=== PATIENT | male | born 1955 | race Caucasian/White ===

== ENCOUNTER 2018-12-09 10:46 | Inpatient (IN) ==
[2018-12-09 11:57] LABS: BASOPHILS # (AUTO) 0.2 X10^3/uL (0.0-0.1); BASOPHILS % (AUTO) 1.2 % (0.2-1.0); EOSINOPHILS # (AUTO) 0.1 x10^3/uL (0.0-0.2); HEMATOCRIT 44.8 % (42.0-54.0); HEMOGLOBIN 15.6 g/dL (13.5-18.0); LYMPHOCYTES # (AUTO) 1.9 X10^3/uL (1.3-2.9); LYMPHOCYTES % (AUTO) 13.9 % (21.0-51.0); MEAN CORPUSCULAR HEMOGLOBIN 30.4 pg (27.0-34.0); MEAN CORPUSCULAR HGB CONC 34.8 g/dL (33.0-35.0); MEAN CORPUSCULAR VOLUME 87.5 fL (80.0-100.0); MEAN PLATELET VOLUME 7.7 fL (7.4-11.0); MONOCYTES # (AUTO) 0.8 x10^3/uL (0.3-0.8); MONOCYTES % (AUTO) 5.8 % (0.0-13.0); NEUTROPHILS # (AUTO) 10.9 x10^3/uL (2.2-4.8); NEUTROPHILS % (AUTO) 78.1 % (42.0-75.0); PLATELET COUNT 288 X10^3/uL (150.0-450.0); RED BLOOD COUNT 5.11 X10^6/uL (4.7-6.0); RED CELL DISTRIBUTION WIDTH 14.5 % (11.6-16.5); WHITE BLOOD COUNT 13.9 X10^3/uL (3.6-10.0)
[2018-12-09 12:04] LABS: BILIRUBIN,URINE NEGATIVE (NEGATIVE); BLOOD/HEMOGLOBIN,URINE 1+ (NEGATIVE); GLUCOSE, URINE NEGATIVE (NEGATIVE); KETONES,URINE NEGATIVE (NEGATIVE); LEUKOCYTE ESTERASE ,URINE NEGATIVE (NEGATIVE); NITRITES,URINE NEGATIVE (NEGATIVE); PH,URINE 6.5 (5.0 - 8.0); PROTEIN,URINE 2+ (NEGATIVE); UROBILINOGEN,URINE 1+ (NORMAL)
[2018-12-09 12:11] LABS: APPEARANCE,URINE HAZY (CLEAR); COLOR,URINE YELLOW (YELLOW)
[2018-12-09 12:13] VITALS: BMI 37.5
[2018-12-09 12:17] LABS: BACTERIA,URINE NEGATIVE /HPF (NEGATIVE); MUCUS,URINE FEW /HPF (NEGATIVE); RBC,URINE 0-2 /HPF (0-3); SQUAMOUS EPITHELIAL CELL,UR NEGATIVE /HPF (NEGATIVE)
[2018-12-09 12:19] LABS: ALANINE AMINOTRANSFERASE 30 Units/L (12-78); ALBUMIN 3.5 g/dL (3.4-5.0); ALKALINE PHOSPHATASE 51 Units/L (46-116); ASPARTATE AMINO TRANSFERASE 19 Units/L (15-37); BLOOD UREA NITROGEN 14 mg/dL (7-18); CALCIUM 8.9 mg/dL (8.5-10.1); CARBON DIOXIDE 31.1 mmol/L (21-32); CHLORIDE 100 mmol/L (98-107); COR NA(FOR HYPERGLY) 137 mmol/L (136-145); CREATININE 1.33 mg/dL (0.70-1.30); SODIUM 136 mmol/L (136-145); TOTAL PROTEIN 7.5 g/dL (6.4-8.2); eGFR NON BLACK RACES 57 (>60)
[2018-12-09] MEDS: PROTONIX INJ 40 MG VIAL IVP SCH (14:00)
[2018-12-09] MEDS: NS 1000 ML 1,000 ML IV SCH (14:00)
--- NOTE | 2018-12-09 17:46 | DR.H&P ---
H&P - History & Physical for Day of: H&P Date: 12/09/18 - Chief Complaint Chief Complaint: LEFT LOWER ABDOMINAL PAIN, FEVER, CONSTIPATION AND URINARY RETENTION - History of Present Illness History of Present Illness: PT 63WM DIRECT ADMIT FROM DR OSPINA OFFICE WITH LLQ PAIN AND TENDERNESS WITH FEVER FOR 2-3 DAYS. PT STATES HE WAS CONSTIPATED AND HAS TAKEN MILK OF MAGNESIA WITHOUT IMPROVEMENT IN LLQ PAIN. PT STATES PAIN EXTENDS TO LEFT LOWER PELVIC AREA. PT HAS PMH HTN AND OA. PT ADMITTED FOR TREATMENT OF ACUTE ABDOMINAL PAIN R/O DIVERTICULITIS - Past Medical History Past Medical History: Dyslipidemia, Hypertension - Past Surgical History Surgical History: Tonsillectomy - Family History Family Medical History: Diabetes Mellitus, Coronary Artery Disease, Hypertension - Social History Does patient currently use any type of tobacco product: No Have you used tobacco products in the last 12 months: No Type of Tobacco Use: None Does any household member use tobacco: No Alcohol Use: None Drug Use: None - Medications Home Medications: No Known Allergies [NKA] Allergy (Verified 12/09/18 14:20) CONTINUE taking the following medications aspirin [Aspir-81] 81 mg PO DAILY 12/09/18 [History] - Review of Systems Constitutional: Fever Eyes: No Symptoms Reported ENT: No Symptoms Reported Respiratory: No Symptoms Reported Cardiovascular: No Symptoms Reported Gastrointestinal: Nausea, Abdominal Pain, Constipation Genitourinary: Retention Musculoskeletal: No Symptoms Reported Skin: No Symptoms Reported Neurological: No Symptoms Reported - Physical Exam Vital Signs: Temperature 97.8 F Pulse Rate [Right Radial] 82 Respiratory Rate 18 Blood Pressure [Right Arm] 143/80 Blood Pressure 154/88 O2 Sat by Pulse Oximetry 96 Oriented: Normal Eyes: Normal Ear: Normal Nose: Normal Throat: Normal Respiratory: RLL Diminished, LLL Diminished Cardiovascular: Normal : Normal Auscultation: Bowel Sounds: Normal Tenderness: LUQ, LLQ, Suprapubic, Moderate Skin: Decreased Turgur Musculoskeletal: Normal Psychiatric: Anxiety Affect: Anxious Speech Pattern: Clear, Appropriate - Assessment/Plan (1) Abdominal pain, acute, left lower quadrant Status: Acute Plan: ADMIT, NPO. CT ABD/PELVIS WITH CONTRAST, R/O DIVERTICULITIS. IV HYDRATION, PAIN AND NAUSEA CONTROL. PPI, BP CONTROL. AM CXR, UA AND PSA, FLOMAX O.4 Q HS (2) Fever Status: Acute (3) Hypertension Status: Acute (4) Urinary retention Status: Acute - Allergies Allergies/Adverse Reactions: Allergies Allergy/AdvReac Type Severity Reaction Status Date / Time No Known Allergies [NKA] Allergy Verified 12/09/18 14:20
[2018-12-09] MEDS: FLAGYL IV PREMIX 500 MG BAG 500 MG/100 ML BAG IV SCH ×2 (18:26→20:51)
--- NOTE | 2018-12-09 18:57 | CT ---
CT OF THE ABDOMEN AND PELVIS WITH CONTRAST HISTORY: Left-sided abdominal pain and tenderness for 3 days Comparison: None Technique: Multiple axial images of the abdomen and pelvis were obtained from the lung bases to the pubic symphysis follow the administration of IV contrast as well as oral contrast. Dose reduction techniques including Automated Exposure Control (AEC) and adjustment of mA and kV were utlized. Findings: The heart is normal in size. There is no pericardial effusion. Mild emphysema of the lung bases with right basilar bulla. Splenomegaly with the spleen measuring 17 cm in craniocaudal dimension. The liver measures 24 cm in craniocaudal dimension. No focal lesions. The portal vein is patent. No ductal dilitation. Gallbladder is present. No calcified gallstones or gallbladder wall thickening. The pancreas is unremarkable. Adrenal glands are normal. Kidneys enhance symmetrically without hydronephrosis or nephrolithiasis. Severe focal inflammation of the sigmoid colon in the region of multiple diverticula. There is clustered free air within the sigmoid mesentery without definable, loculated fluid collection. No abnormal appearing mesenteric or retroperitoneal lymph nodes. The bladder is normal in appearance. Prostate not enlarged. No free fluid or abnormal pelvic lymph nodes. No aggressive osseous lesions. IMPRESSION: 1. Acute diverticulitis of the sigmoid colon with a local perforation. No abscess visualized. 2. Reported By:
[2018-12-09] MEDS ORDERED: ZOFRAN INJ 4 MG VIAL IVP PRN (19:59)
[2018-12-09] MEDS ORDERED: AMBIEN PO PRN (19:59)
[2018-12-09] MEDS: MORPHINE SULFATE INJ 2 MG INJ IVP PRN (20:50)
[2018-12-09] MEDS: FLOMAX PO SCH (20:50)
[2018-12-09] MEDS: CIPRO IV 400 MG PREMIX* 400 MG/200 ML IV.SOLN. IV SCH (21:00)
[2018-12-10] MEDS: FLAGYL IV PREMIX 500 MG BAG 500 MG/100 ML BAG IV SCH ×4 (03:29→20:52)
[2018-12-10] MEDS: MORPHINE SULFATE INJ 2 MG INJ IVP PRN (03:29)
[2018-12-10] MEDS: NS 1000 ML 1,000 ML IV SCH ×3 (03:30→22:21)
[2018-12-10 06:22] LABS: BASOPHILS # (AUTO) 0.1 X10^3/uL (0.0-0.1); BASOPHILS % (AUTO) 0.9 % (0.2-1.0); EOSINOPHILS # (AUTO) 0.2 x10^3/uL (0.0-0.2); HEMATOCRIT 39.7 % (42.0-54.0); HEMOGLOBIN 13.8 g/dL (13.5-18.0); LYMPHOCYTES % (AUTO) 19.6 % (21.0-51.0); MEAN CORPUSCULAR HEMOGLOBIN 30.6 pg (27.0-34.0); MEAN CORPUSCULAR HGB CONC 34.7 g/dL (33.0-35.0); MEAN CORPUSCULAR VOLUME 88.1 fL (80.0-100.0); MEAN PLATELET VOLUME 7.6 fL (7.4-11.0); MONOCYTES # (AUTO) 0.6 x10^3/uL (0.3-0.8); MONOCYTES % (AUTO) 5.4 % (0.0-13.0); NEUTROPHILS # (AUTO) 7.4 x10^3/uL (2.2-4.8); NEUTROPHILS % (AUTO) 72.1 % (42.0-75.0); PLATELET COUNT 244 X10^3/uL (150.0-450.0); RED BLOOD COUNT 4.51 X10^6/uL (4.7-6.0); RED CELL DISTRIBUTION WIDTH 14.3 % (11.6-16.5); WHITE BLOOD COUNT 10.2 X10^3/uL (3.6-10.0)
--- NOTE | 2018-12-10 06:24 | RAD ---
HISTORY: Decreased lung sounds Study: Chest AP portable Comparison: [id number] Findings: Heart is within normal limits in size. The natasha are normal. The lungs are minimally hyperinflated but free of acute infiltrates. No pleural effusions are identified. The bony thorax is unremarkable. IMPRESSION: Lungs minimally hyperinflated but clear Reported By:
[2018-12-10 06:39] LABS: ALANINE AMINOTRANSFERASE 27 Units/L (12-78); ALBUMIN 2.8 g/dL (3.4-5.0); ALKALINE PHOSPHATASE 42 Units/L (46-116); ASPARTATE AMINO TRANSFERASE 20 Units/L (15-37); BLOOD UREA NITROGEN 15 mg/dL (7-18); CALCIUM 8.5 mg/dL (8.5-10.1); CARBON DIOXIDE 26.2 mmol/L (21-32); CHLORIDE 102 mmol/L (98-107); COR CA(FOR HYPOALB) 9.5 mg/dL (8.5-10.1); COR NA(FOR HYPERGLY) 138 mmol/L (136-145); CREATININE 1.21 mg/dL (0.70-1.30); SODIUM 137 mmol/L (136-145); TOTAL PROTEIN 6.3 g/dL (6.4-8.2); eGFR NON BLACK RACES > 60 (>60)
[2018-12-10] MEDS ORDERED: K-DUR TAB 20 MEQ PO PRN (07:24)
[2018-12-10] MEDS ORDERED: MICRO K EXTEN CAP 10 MEQ PO PRN (07:24)
[2018-12-10] MEDS ORDERED: POTASSIUM CHLORIDE LIQ 20 MEQ UDC PO PRN (07:24)
[2018-12-10] MEDS ORDERED: K-RIDER 10 MEQ/NS 100 ML 10 MEQ/100 ML BAG IV PRN (07:24)
[2018-12-10] MEDS ORDERED: POTASSIUM CHL 40 MEQ/NS 0.45% 500 ML IV PRN (07:24)
[2018-12-10] MEDS ORDERED: KLOR-CON PO PRN (07:24)
[2018-12-10] MEDS ORDERED: POTASSIUM CHL 60 MEQ/NS 0.45% 500 ML IV PRN (07:24)
[2018-12-10] MEDS: PROTONIX INJ 40 MG VIAL IVP SCH (08:24)
[2018-12-10] MEDS: CIPRO IV 400 MG PREMIX* 400 MG/200 ML IV.SOLN. IV SCH ×2 (08:24→20:52)
[2018-12-10] MEDS: HYDROCHLOROTHIAZIDE 12.5 MG CAP PO SCH ×2 (09:36→09:39)
[2018-12-10] MEDS: COZAAR PO SCH ×2 (09:36→09:39)
[2018-12-10] MEDS: CRESTOR TAB 10 MG PO SCH (09:37)
[2018-12-10] MEDS: XANAX PO PRN ×2 (10:34→17:56)
--- NOTE | 2018-12-10 10:45 | DR.PROGNOT ---
Hospital Progress Notes - Progress Note for Day of: Progress Note Date: 12/10/18 - Chief Complaint Chief Complaint: Lt side abdominal pain is less this am . no nausea or vomiting. having low grade fever this am . WBC 10.2 - Past Medical Family Social History Past Med/Fam/Surg Hx: No changes since H&P Allergies: Allergies No Known Allergies [NKA] Allergy (Verified 12/09/18 14:20) - Review Of Systems ROS: No change since H&P - Vital Signs Vital Signs: Temperature 99 F Pulse Rate [Right Radial] 75 Respiratory Rate 20 Blood Pressure [Right Arm] 118/59 Blood Pressure 154/88 O2 Sat by Pulse Oximetry 94 - Physical Exam Oriented: Normal Eyes: Normal Ear: Normal Nose: Normal Throat: Normal Cardiovascular: Normal : Normal GI:Auscultation: Decreased GI:Palpation: Normal GI: Tenderness: LLQ (obese , soft abdomen with LLQ tenderness with only mild rebound . BS+ but hypoactive ), Suprapubic, Moderate Skin: Decreased Turgur Musculoskeletal: Normal Psychiatric: Anxiety Affect: Anxious Speech Pattern: Clear, Appropriate - Laboratory and Diagnostics Result Diagrams: 12/10/18 05:55 12/10/18 05:55 Labs: Laboratory WBC 10.2 X10^3/uL (3.6-10.0) H 12/10/18 05:55 RBC 4.51 X10^6/uL (4.7-6.0) L 12/10/18 05:55 Hgb 13.8 g/dL (13.5-18.0) 12/10/18 05:55 Hct 39.7 % (42.0-54.0) L 12/10/18 05:55 MCV 88.1 fL (80.0-100.0) 12/10/18 05:55 MCH 30.6 pg (27.0-34.0) 12/10/18 05:55 MCHC 34.7 g/dL (33.0-35.0) 12/10/18 05:55 RDW 14.3 % (11.6-16.5) 12/10/18 05:55 Plt Count 244 X10^3/uL (150.0-450.0) 12/10/18 05:55 MPV 7.6 fL (7.4-11.0) 12/10/18 05:55 Neut % (Auto) 72.1 % (42.0-75.0) 12/10/18 05:55 Lymph % (Auto) 19.6 % (21.0-51.0) L 12/10/18 05:55 [place] % (Auto) 5.4 % (0.0-13.0) 12/10/18 05:55 Eos % (Auto) 2.0 % (0.9-2.9) 12/10/18 05:55 Baso % (Auto) 0.9 % (0.2-1.0) 12/10/18 05:55 Neut # (Auto) 7.4 x10^3/uL (2.2-4.8) H 12/10/18 05:55 Lymph # (Auto) 2.0 X10^3/uL (1.3-2.9) 12/10/18 05:55 [place] # (Auto) 0.6 x10^3/uL (0.3-0.8) 12/10/18 05:55 Eos # (Auto) 0.2 x10^3/uL (0.0-0.2) 12/10/18 05:55 Baso # (Auto) 0.1 X10^3/uL (0.0-0.1) 12/10/18 05:55 Absolute Nucleated RBC 0.0 /100WBC 12/10/18 05:55 Sodium 137 mmol/L (136-145) 12/10/18 05:55 Corrected Sodium 138 mmol/L (136-145) 12/10/18 05:55 Potassium 3.4 mmol/L (3.5-5.1) L 12/10/18 05:55 Chloride 102 mmol/L (98-107) 12/10/18 05:55 Carbon Dioxide 26.2 mmol/L (21-32) 12/10/18 05:55 BUN 15 mg/dL (7-18) 12/10/18 05:55 Creatinine 1.21 mg/dL (0.70-1.30) 12/10/18 05:55 Est GFR (MDRD) Af Amer > 60 (>60) 12/10/18 05:55 Est GFR (MDRD) Non-Af > 60 (>60) 12/10/18 05:55 Glucose 130 mg/dL (65-99) H 12/10/18 05:55 Calcium 8.5 mg/dL (8.5-10.1) 12/10/18 05:55 Corrected Calcium 9.5 mg/dL (8.5-10.1) 12/10/18 05:55 Magnesium 2.1 mg/dL (1.7-2.9) 12/10/18 05:55 Total Bilirubin 0.40 mg/dL (0.2-1.0) 12/10/18 05:55 AST 20 Units/L (15-37) 12/10/18 05:55 ALT 27 Units/L (12-78) 12/10/18 05:55 Alkaline Phosphatase 42 Units/L (46-116) L 12/10/18 05:55 Total Protein 6.3 g/dL (6.4-8.2) L 12/10/18 05:55 Albumin 2.8 g/dL (3.4-5.0) L 12/10/18 05:55 Globulin 3.5 g/dL (2.5-4.5) 12/10/18 05:55 Albumin/Globulin Ratio 0.8 Ratio (1.1-2.1) L 12/10/18 05:55 Total PSA 0.47 ng/mL (0.13-4.0) 12/09/18 11:44 Specimen Type Clean catch urine 12/09/18 11:44 Urine Color Yellow (YELLOW) 12/09/18 11:44 Urine Appearance Hazy (CLEAR) 12/09/18 11:44 Urine pH 6.5 (5.0 - 8.0) 12/09/18 11:44 Ur Specific [place] 1.010 (1.000-1.030) 12/09/18 11:44 Urine Protein 2+ (NEGATIVE) 12/09/18 11:44 Urine Glucose (UA) Negative (NEGATIVE) 12/09/18 11:44 Urine Ketones Negative (NEGATIVE) 12/09/18 11:44 Urine Occult Blood 1+ (NEGATIVE) 12/09/18 11:44 Urine Nitrite Negative (NEGATIVE) 12/09/18 11:44 Urine Bilirubin Negative (NEGATIVE) 12/09/18 11:44 Urine Urobilinogen 1+ (NORMAL) 12/09/18 11:44 Ur Leukocyte Esterase Negative (NEGATIVE) 12/09/18 11:44 Urine RBC 0-2 /HPF (0-3) 12/09/18 11:44 Urine WBC None seen /HPF (0-5) 12/09/18 11:44 Ur Squamous Epith Cells Negative /HPF (NEGATIVE) 12/09/18 11:44 Urine Bacteria Negative /HPF (NEGATIVE) 12/09/18 11:44 Urine Mucus Few /HPF (NEGATIVE) 12/09/18 11:44 Ur Culture Indicated? No/not indicated 12/09/18 11:44 - Assessment and Plan 1: acute sigmoid diverticulitis with sealed perforation . no peritonitis now . to keep NPO , IVF , IV ATB ( Cipro and Flagyl ). DVT prophylaxis and IV Protonix . may have oral meds . abdominal xray in am - Problem Patient Problems: Patient Problems Abdominal pain, acute, left lower quadrant (Acute) R10.32 Fever (Acute) R50.9 Hypertension (Acute) I10 Urinary retention (Acute) R33.9
[2018-12-10] MEDS: LOVENOX INJ 40 MG SYR SC SCH (16:45)
[2018-12-10] MEDS: SEROquel TAB 25 mg PO SCH (17:55)
--- NOTE | 2018-12-10 18:16 | PCM.PROG ---
Progress Note - Progress Note for Day of Date of Exam: 12/10/18 - Subjective Subjective: his is a 63-year-old male who is a patient of Dr. Toribio. He was admitted with acute onset of abdominal pain which was localized to the left lower quadrant. His pain started about 5 days ago. It was constant with episodes of increased intensity which was severe at times. He denies any nausea and vomiting this morning. The patient has a long standing history of constipation for which he uses Milk of Magnesium. He denies any rectal bleeding. No previous episodes of similar abdominal pain. No known history of diverticulitis before. No colonoscopy was performed in the past. pt wbc 10.2 this am, Pt co increased anxiety. Pt and spouse informed of CT finding and consultation for Dr. Locke - Past Medical Family Social History Past Med/Fam/Surg Hx: No changes since H&P Allergies: Allergies No Known Allergies [NKA] Allergy (Verified 12/09/18 14:20) - Review of Systems ROS: No change since H&P - Vital Signs and I&O's Vital Signs: Temperature 99.2 F Pulse Rate [Right Radial] 71 Respiratory Rate 18 Blood Pressure [Right Arm] 122/64 Blood Pressure 154/88 O2 Sat by Pulse Oximetry 94 Intake and Output: Intake & Output 12/08/18 12/09/18 12/10/18 12/11/18 11:59 11:59 11:59 11:59 Intake Total 510 / 510 1000 / 1000 Balance 510 / 510 1000 / 1000 - Physical Exam Oriented: Normal Eyes: Normal Ear: Normal Nose: Normal Throat: Normal Respiratory: Diminished Cardiovascular: Normal : Normal Auscultation: Bowel Sounds: Decreased Tenderness: LLQ (obese , soft abdomen with LLQ tenderness with only mild rebound . BS+ but hypoactive ), Suprapubic, Moderate Skin: Decreased Turgur Musculoskeletal: Normal Psychiatric: Anxiety Affect: Anxious Speech Pattern: Clear, Appropriate - Laboratory and Diagnostics Result Diagrams: 12/10/18 05:55 12/10/18 05:55 Labs: Laboratory WBC 10.2 X10^3/uL (3.6-10.0) H 12/10/18 05:55 RBC 4.51 X10^6/uL (4.7-6.0) L 12/10/18 05:55 Hgb 13.8 g/dL (13.5-18.0) 12/10/18 05:55 Hct 39.7 % (42.0-54.0) L 12/10/18 05:55 MCV 88.1 fL (80.0-100.0) 12/10/18 05:55 MCH 30.6 pg (27.0-34.0) 12/10/18 05:55 MCHC 34.7 g/dL (33.0-35.0) 12/10/18 05:55 RDW 14.3 % (11.6-16.5) 12/10/18 05:55 Plt Count 244 X10^3/uL (150.0-450.0) 12/10/18 05:55 MPV 7.6 fL (7.4-11.0) 12/10/18 05:55 Neut % (Auto) 72.1 % (42.0-75.0) 12/10/18 05:55 Lymph % (Auto) 19.6 % (21.0-51.0) L 12/10/18 05:55 [place] % (Auto) 5.4 % (0.0-13.0) 12/10/18 05:55 Eos % (Auto) 2.0 % (0.9-2.9) 12/10/18 05:55 Baso % (Auto) 0.9 % (0.2-1.0) 12/10/18 05:55 Neut # (Auto) 7.4 x10^3/uL (2.2-4.8) H 12/10/18 05:55 Lymph # (Auto) 2.0 X10^3/uL (1.3-2.9) 12/10/18 05:55 [place] # (Auto) 0.6 x10^3/uL (0.3-0.8) 12/10/18 05:55 Eos # (Auto) 0.2 x10^3/uL (0.0-0.2) 12/10/18 05:55 Baso # (Auto) 0.1 X10^3/uL (0.0-0.1) 12/10/18 05:55 Absolute Nucleated RBC 0.0 /100WBC 12/10/18 05:55 Sodium 137 mmol/L (136-145) 12/10/18 05:55 Corrected Sodium 138 mmol/L (136-145) 12/10/18 05:55 Potassium 3.4 mmol/L (3.5-5.1) L 12/10/18 05:55 Chloride 102 mmol/L (98-107) 12/10/18 05:55 Carbon Dioxide 26.2 mmol/L (21-32) 12/10/18 05:55 BUN 15 mg/dL (7-18) 12/10/18 05:55 Creatinine 1.21 mg/dL (0.70-1.30) 12/10/18 05:55 Est GFR (MDRD) Af Amer > 60 (>60) 12/10/18 05:55 Est GFR (MDRD) Non-Af > 60 (>60) 12/10/18 05:55 Glucose 130 mg/dL (65-99) H 12/10/18 05:55 Calcium 8.5 mg/dL (8.5-10.1) 12/10/18 05:55 Corrected Calcium 9.5 mg/dL (8.5-10.1) 12/10/18 05:55 Magnesium 2.1 mg/dL (1.7-2.9) 12/10/18 05:55 Total Bilirubin 0.40 mg/dL (0.2-1.0) 12/10/18 05:55 AST 20 Units/L (15-37) 12/10/18 05:55 ALT 27 Units/L (12-78) 12/10/18 05:55 Alkaline Phosphatase 42 Units/L (46-116) L 12/10/18 05:55 Total Protein 6.3 g/dL (6.4-8.2) L 12/10/18 05:55 Albumin 2.8 g/dL (3.4-5.0) L 12/10/18 05:55 Globulin 3.5 g/dL (2.5-4.5) 12/10/18 05:55 Albumin/Globulin Ratio 0.8 Ratio (1.1-2.1) L 12/10/18 05:55 Total PSA 0.47 ng/mL (0.13-4.0) 12/09/18 11:44 Specimen Type Clean catch urine 12/09/18 11:44 Urine Color Yellow (YELLOW) 12/09/18 11:44 Urine Appearance Hazy (CLEAR) 12/09/18 11:44 Urine pH 6.5 (5.0 - 8.0) 12/09/18 11:44 Ur Specific [place] 1.010 (1.000-1.030) 12/09/18 11:44 Urine Protein 2+ (NEGATIVE) 12/09/18 11:44 Urine Glucose (UA) Negative (NEGATIVE) 12/09/18 11:44 Urine Ketones Negative (NEGATIVE) 12/09/18 11:44 Urine Occult Blood 1+ (NEGATIVE) 12/09/18 11:44 Urine Nitrite Negative (NEGATIVE) 12/09/18 11:44 Urine Bilirubin Negative (NEGATIVE) 12/09/18 11:44 Urine Urobilinogen 1+ (NORMAL) 12/09/18 11:44 Ur Leukocyte Esterase Negative (NEGATIVE) 12/09/18 11:44 Urine RBC 0-2 /HPF (0-3) 12/09/18 11:44 Urine WBC None seen /HPF (0-5) 12/09/18 11:44 Ur Squamous Epith Cells Negative /HPF (NEGATIVE) 12/09/18 11:44 Urine Bacteria Negative /HPF (NEGATIVE) 12/09/18 11:44 Urine Mucus Few /HPF (NEGATIVE) 12/09/18 11:44 Ur Culture Indicated? No/not indicated 12/09/18 11:44 - Plan (1) Acute diverticulitis Status: Acute Plan: NPO, DR LOCKE CONSULTING. CT ABD/PELVIS OBTAINED ON ADMISSION. IV HYDRATION, PAIN AND NAUSEA CONTROL. PPI, BP CONTROL. AM CXR, UA AND PSA, FLOMAX O.4 Q HS (2) Abdominal pain, acute, left lower quadrant Status: Acute (3) Fever Status: Acute (4) Hypertension Status: Acute (5) Urinary retention Status: Acute
[2018-12-10] MEDS: FLOMAX PO SCH (20:50)
[2018-12-11] MEDS: FLAGYL IV PREMIX 500 MG BAG 500 MG/100 ML BAG IV SCH ×4 (03:55→20:27)
[2018-12-11] MEDS: NS 1000 ML 1,000 ML IV SCH ×3 (03:56→21:05)
[2018-12-11 06:17] LABS: ALANINE AMINOTRANSFERASE 26 Units/L (12-78); ALBUMIN 2.9 g/dL (3.4-5.0); ALKALINE PHOSPHATASE 41 Units/L (46-116); ASPARTATE AMINO TRANSFERASE 20 Units/L (15-37); BLOOD UREA NITROGEN 14 mg/dL (7-18); CALCIUM 8.7 mg/dL (8.5-10.1); CARBON DIOXIDE 28.7 mmol/L (21-32); CHLORIDE 102 mmol/L (98-107); COR CA(FOR HYPOALB) 9.6 mg/dL (8.5-10.1); CREATININE 1.24 mg/dL (0.70-1.30); SODIUM 140 mmol/L (136-145); TOTAL PROTEIN 6.5 g/dL (6.4-8.2); eGFR NON BLACK RACES > 60 (>60)
[2018-12-11 06:18] LABS: BASOPHILS % (AUTO) 0.3 % (0.2-1.0); EOSINOPHILS # (AUTO) 0.2 x10^3/uL (0.0-0.2); EOSINOPHILS % (AUTO) 3.1 % (0.9-2.9); HEMATOCRIT 40.5 % (42.0-54.0); HEMOGLOBIN 13.9 g/dL (13.5-18.0); LYMPHOCYTES # (AUTO) 1.7 X10^3/uL (1.3-2.9); LYMPHOCYTES % (AUTO) 24.8 % (21.0-51.0); MEAN CORPUSCULAR HEMOGLOBIN 30.3 pg (27.0-34.0); MEAN CORPUSCULAR HGB CONC 34.4 g/dL (33.0-35.0); MEAN CORPUSCULAR VOLUME 88.1 fL (80.0-100.0); MEAN PLATELET VOLUME 7.5 fL (7.4-11.0); MONOCYTES # (AUTO) 0.4 x10^3/uL (0.3-0.8); MONOCYTES % (AUTO) 5.7 % (0.0-13.0); NEUTROPHILS # (AUTO) 4.6 x10^3/uL (2.2-4.8); NEUTROPHILS % (AUTO) 66.1 % (42.0-75.0); PLATELET COUNT 290 X10^3/uL (150.0-450.0); RED CELL DISTRIBUTION WIDTH 14.5 % (11.6-16.5); WHITE BLOOD COUNT 6.9 X10^3/uL (3.6-10.0)
[2018-12-11] MEDS: SEROquel TAB 25 mg PO SCH ×2 (08:45→18:00)
[2018-12-11] MEDS: PROTONIX INJ 40 MG VIAL IVP SCH (08:47)
[2018-12-11] MEDS: LOVENOX INJ 40 MG SYR SC SCH (08:51)
[2018-12-11] MEDS: COZAAR PO SCH (08:52)
[2018-12-11] MEDS: HYDROCHLOROTHIAZIDE 12.5 MG CAP PO SCH (08:52)
[2018-12-11] MEDS: CRESTOR TAB 10 MG PO SCH (08:52)
[2018-12-11] MEDS: CIPRO IV 400 MG PREMIX* 400 MG/200 ML IV.SOLN. IV SCH ×2 (10:15→20:27)
--- NOTE | 2018-12-11 16:03 | DR.PROGNOT ---
Hospital Progress Notes - Progress Note for Day of: Progress Note Date: 12/11/18 - Chief Complaint Chief Complaint: better today with mild Lt side abdominal pain . no nausea or vomiting . afebrile . - Past Medical Family Social History Past Med/Fam/Surg Hx: No changes since H&P Allergies: Allergies No Known Allergies [NKA] Allergy (Verified 12/09/18 14:20) - Review Of Systems ROS: No change since H&P - Vital Signs Vital Signs: Temperature 98.1 F Pulse Rate [Right Radial] 76 Respiratory Rate 20 Blood Pressure [Right Arm] 103/68 Blood Pressure 154/88 O2 Sat by Pulse Oximetry 94 - Physical Exam Oriented: Normal Eyes: Normal Ear: Normal Nose: Normal Throat: Normal Respiratory: Diminished Cardiovascular: Normal : Normal GI:Auscultation: Decreased GI:Palpation: Normal GI: Tenderness: LLQ (obese , soft abdomen with LLQ tenderness with only mild rebound . BS+ but hypoactive ), Suprapubic, Moderate Skin: Decreased [place]ur Musculoskeletal: Normal Psychiatric: Anxiety Affect: Anxious Speech Pattern: Clear - Laboratory and Diagnostics Result Diagrams: 12/11/18 05:10 12/11/18 05:10 Labs: Laboratory WBC 6.9 X10^3/uL (3.6-10.0) 12/11/18 05:10 RBC 4.60 X10^6/uL (4.7-6.0) L 12/11/18 05:10 Hgb 13.9 g/dL (13.5-18.0) 12/11/18 05:10 Hct 40.5 % (42.0-54.0) L 12/11/18 05:10 MCV 88.1 fL (80.0-100.0) 12/11/18 05:10 MCH 30.3 pg (27.0-34.0) 12/11/18 05:10 MCHC 34.4 g/dL (33.0-35.0) 12/11/18 05:10 RDW 14.5 % (11.6-16.5) 12/11/18 05:10 Plt Count 290 X10^3/uL (150.0-450.0) 12/11/18 05:10 MPV 7.5 fL (7.4-11.0) 12/11/18 05:10 Neut % (Auto) 66.1 % (42.0-75.0) 12/11/18 05:10 Lymph % (Auto) 24.8 % (21.0-51.0) 12/11/18 05:10 [place] % (Auto) 5.7 % (0.0-13.0) 12/11/18 05:10 Eos % (Auto) 3.1 % (0.9-2.9) H 12/11/18 05:10 Baso % (Auto) 0.3 % (0.2-1.0) 12/11/18 05:10 Neut # (Auto) 4.6 x10^3/uL (2.2-4.8) 12/11/18 05:10 Lymph # (Auto) 1.7 X10^3/uL (1.3-2.9) 12/11/18 05:10 [place] # (Auto) 0.4 x10^3/uL (0.3-0.8) 12/11/18 05:10 Eos # (Auto) 0.2 x10^3/uL (0.0-0.2) 12/11/18 05:10 Baso # (Auto) 0.0 X10^3/uL (0.0-0.1) 12/11/18 05:10 Absolute Nucleated RBC 0.1 /100WBC 12/11/18 05:10 Sodium 140 mmol/L (136-145) 12/11/18 05:10 Corrected Sodium TNP 12/11/18 05:10 Potassium 3.7 mmol/L (3.5-5.1) 12/11/18 05:10 Chloride 102 mmol/L (98-107) 12/11/18 05:10 Carbon Dioxide 28.7 mmol/L (21-32) 12/11/18 05:10 BUN 14 mg/dL (7-18) 12/11/18 05:10 Creatinine 1.24 mg/dL (0.70-1.30) 12/11/18 05:10 Est GFR (MDRD) Af Amer > 60 (>60) 12/11/18 05:10 Est GFR (MDRD) Non-Af > 60 (>60) 12/11/18 05:10 Glucose 110 mg/dL (65-99) H 12/11/18 05:10 Calcium 8.7 mg/dL (8.5-10.1) 12/11/18 05:10 Corrected Calcium 9.6 mg/dL (8.5-10.1) 12/11/18 05:10 Magnesium 2.1 mg/dL (1.7-2.9) 12/10/18 05:55 Total Bilirubin 0.40 mg/dL (0.2-1.0) 12/11/18 05:10 AST 20 Units/L (15-37) 12/11/18 05:10 ALT 26 Units/L (12-78) 12/11/18 05:10 Alkaline Phosphatase 41 Units/L (46-116) L 12/11/18 05:10 Total Protein 6.5 g/dL (6.4-8.2) 12/11/18 05:10 Albumin 2.9 g/dL (3.4-5.0) L 12/11/18 05:10 Globulin 3.6 g/dL (2.5-4.5) 12/11/18 05:10 Albumin/Globulin Ratio 0.8 Ratio (1.1-2.1) L 12/11/18 05:10 Total PSA 0.47 ng/mL (0.13-4.0) 12/09/18 11:44 Specimen Type Clean catch urine 12/09/18 11:44 Urine Color Yellow (YELLOW) 12/09/18 11:44 Urine Appearance Hazy (CLEAR) 12/09/18 11:44 Urine pH 6.5 (5.0 - 8.0) 12/09/18 11:44 Ur Specific [place] 1.010 (1.000-1.030) 12/09/18 11:44 Urine Protein 2+ (NEGATIVE) 12/09/18 11:44 Urine Glucose (UA) Negative (NEGATIVE) 12/09/18 11:44 Urine Ketones Negative (NEGATIVE) 12/09/18 11:44 Urine Occult Blood 1+ (NEGATIVE) 12/09/18 11:44 Urine Nitrite Negative (NEGATIVE) 12/09/18 11:44 Urine Bilirubin Negative (NEGATIVE) 12/09/18 11:44 Urine Urobilinogen 1+ (NORMAL) 12/09/18 11:44 Ur Leukocyte Esterase Negative (NEGATIVE) 12/09/18 11:44 Urine RBC 0-2 /HPF (0-3) 12/09/18 11:44 Urine WBC None seen /HPF (0-5) 12/09/18 11:44 Ur Squamous Epith Cells Negative /HPF (NEGATIVE) 12/09/18 11:44 Urine Bacteria Negative /HPF (NEGATIVE) 12/09/18 11:44 Urine Mucus Few /HPF (NEGATIVE) 12/09/18 11:44 Ur Culture Indicated? No/not indicated 12/09/18 11:44 - Assessment and Plan 1: subsiding acute sigmoid divrticulitis with sealed perforation . same IV ATB ( Cipro and Flagyl ). DVT prophylaxis and IV Protonix . on clear liquid . may go home in am on oral ATB and will follow in one week . - Problem Patient Problems: Patient Problems Abdominal pain, acute, left lower quadrant (Acute) R10.32 Fever (Acute) R50.9 Hypertension (Acute) I10 Urinary retention (Acute) R33.9 Acute diverticulitis (Acute) K57.92
[2018-12-11] MEDS: FLOMAX PO SCH (20:27)
[2018-12-12] MEDS: NS 1000 ML 1,000 ML IV SCH ×3 (03:49→11:00)
[2018-12-12] MEDS: FLAGYL IV PREMIX 500 MG BAG 500 MG/100 ML BAG IV SCH ×2 (03:49→17:20)
[2018-12-12 06:24] LABS: BLOOD UREA NITROGEN 15 mg/dL (7-18); CALCIUM 8.9 mg/dL (8.5-10.1); CARBON DIOXIDE 25.8 mmol/L (21-32); CHLORIDE 105 mmol/L (98-107); CREATININE 1.22 mg/dL (0.70-1.30); SODIUM 141 mmol/L (136-145); eGFR NON BLACK RACES > 60 (>60)
--- NOTE | 2018-12-12 09:28 | W.DIS.FURT ---
Summary of Discharge Discharge Summary of Date Date of Exam: 12/12/18 Admission Date Date of Admission: 12/09/18 Admission Diagnosis Patient Problems (Updated 12/10/18 @ 18:16 by JEN SHELL) Abdominal pain, acute, left lower quadrant (Acute) R10.32 Fever (Acute) R50.9 Hypertension (Acute) I10 Urinary retention (Acute) R33.9 Acute diverticulitis (Acute) K57.92 Hospital Course: Pt is a 63-year-old male, pcp Dr. Toribio, admitted after having acute onset of abdominal pain of the left lower quadrant. CTAP showing acute sigmoid diverticulitis w/ localized perforation. Pt was started on IV abx Cipro and Flagyl, placed on NPO diet. Gen Surgery was consulted, continued plan of care, and evaluation including diagnosis of diverticulitis w/ sealed perforation. Pt's diet was gradually advanced. On day of discharge, pt was afebrile, tolerated po intake, had regular bowel movement, and no longer had abdominal pain/discomfort on examination. Prior he had no known history of diverticulitis before. No colonoscopy was performed in the past. Instructed to follow up within 1 week w/ General Surgery and PCP. Discharged with po cipro and flagyl to complete 10day course. Vital Signs: Vital Signs (72 hours) 12/09/18 11:30 12/09/18 16:00 12/09/18 20:00 Temperature 99.4 F 97.8 F 98.4 F Pulse Rate [Right Radial] 110 H 82 81 Respiratory Rate 20 18 20 Blood Pressure [Right Arm] 126/82 143/80 132/58 O2 Sat by Pulse Oximetry 96 95 12/09/18 20:50 12/09/18 21:20 12/10/18 00:00 Temperature 97.8 F Pulse Rate [Right Radial] 78 Respiratory Rate 18 20 20 Blood Pressure [Right Arm] 136/61 O2 Sat by Pulse Oximetry 96 12/10/18 03:29 12/10/18 03:59 12/10/18 04:00 Temperature 99 F Pulse Rate [Right Radial] 75 Respiratory Rate 20 20 20 Blood Pressure [Right Arm] 118/59 O2 Sat by Pulse Oximetry 94 L 12/10/18 08:00 12/10/18 11:40 12/10/18 16:00 Temperature 98.0 F 98.2 F 99.2 F Pulse Rate [Right Radial] 78 67 71 Respiratory Rate 20 20 18 Blood Pressure [Right Arm] 136/77 118/57 122/64 O2 Sat by Pulse Oximetry 98 95 94 L 12/11/18 08:00 12/11/18 20:00 Temperature 98.1 F 98.0 F Pulse Rate [Right Radial] 76 74 Respiratory Rate 20 22 Blood Pressure [Right Arm] 103/68 119/58 O2 Sat by Pulse Oximetry 94 L 98 Labs: Laboratory Last Values WBC 6.9 X10^3/uL (3.6-10.0) 12/11/18 05:10 RBC 4.60 X10^6/uL (4.7-6.0) L 12/11/18 05:10 Hgb 13.9 g/dL (13.5-18.0) 12/11/18 05:10 Hct 40.5 % (42.0-54.0) L 12/11/18 05:10 MCV 88.1 fL (80.0-100.0) 12/11/18 05:10 MCH 30.3 pg (27.0-34.0) 12/11/18 05:10 MCHC 34.4 g/dL (33.0-35.0) 12/11/18 05:10 RDW 14.5 % (11.6-16.5) 12/11/18 05:10 Plt Count 290 X10^3/uL (150.0-450.0) 12/11/18 05:10 MPV 7.5 fL (7.4-11.0) 12/11/18 05:10 Neut % (Auto) 66.1 % (42.0-75.0) 12/11/18 05:10 Lymph % (Auto) 24.8 % (21.0-51.0) 12/11/18 05:10 [place] % (Auto) 5.7 % (0.0-13.0) 12/11/18 05:10 Eos % (Auto) 3.1 % (0.9-2.9) H 12/11/18 05:10 Baso % (Auto) 0.3 % (0.2-1.0) 12/11/18 05:10 Neut # (Auto) 4.6 x10^3/uL (2.2-4.8) 12/11/18 05:10 Lymph # (Auto) 1.7 X10^3/uL (1.3-2.9) 12/11/18 05:10 [place] # (Auto) 0.4 x10^3/uL (0.3-0.8) 12/11/18 05:10 Eos # (Auto) 0.2 x10^3/uL (0.0-0.2) 12/11/18 05:10 Baso # (Auto) 0.0 X10^3/uL (0.0-0.1) 12/11/18 05:10 Absolute Nucleated RBC 0.1 /100WBC 12/11/18 05:10 Sodium 141 mmol/L (136-145) 12/12/18 04:07 Corrected Sodium TNP 12/12/18 04:07 Potassium 3.8 mmol/L (3.5-5.1) 12/12/18 04:07 Chloride 105 mmol/L (98-107) 12/12/18 04:07 Carbon Dioxide 25.8 mmol/L (21-32) 12/12/18 04:07 BUN 15 mg/dL (7-18) 12/12/18 04:07 Creatinine 1.22 mg/dL (0.70-1.30) 12/12/18 04:07 Est GFR (MDRD) Af Amer > 60 (>60) 12/12/18 04:07 Est GFR (MDRD) Non-Af > 60 (>60) 12/12/18 04:07 Glucose 94 mg/dL (65-99) 12/12/18 04:07 Calcium 8.9 mg/dL (8.5-10.1) 12/12/18 04:07 Corrected Calcium 9.6 mg/dL (8.5-10.1) 12/11/18 05:10 Magnesium 2.1 mg/dL (1.7-2.9) 12/10/18 05:55 Total Bilirubin 0.40 mg/dL (0.2-1.0) 12/11/18 05:10 AST 20 Units/L (15-37) 12/11/18 05:10 ALT 26 Units/L (12-78) 12/11/18 05:10 Alkaline Phosphatase 41 Units/L (46-116) L 12/11/18 05:10 Total Protein 6.5 g/dL (6.4-8.2) 12/11/18 05:10 Albumin 2.9 g/dL (3.4-5.0) L 12/11/18 05:10 Globulin 3.6 g/dL (2.5-4.5) 12/11/18 05:10 Albumin/Globulin Ratio 0.8 Ratio (1.1-2.1) L 12/11/18 05:10 Total PSA 0.47 ng/mL (0.13-4.0) 12/09/18 11:44 Specimen Type Clean catch urine 12/09/18 11:44 Urine Color Yellow (YELLOW) 12/09/18 11:44 Urine Appearance Hazy (CLEAR) 12/09/18 11:44 Urine pH 6.5 (5.0 - 8.0) 12/09/18 11:44 Ur Specific [place] 1.010 (1.000-1.030) 12/09/18 11:44 Urine Protein 2+ (NEGATIVE) 12/09/18 11:44 Urine Glucose (UA) Negative (NEGATIVE) 12/09/18 11:44 Urine Ketones Negative (NEGATIVE) 12/09/18 11:44 Urine Occult Blood 1+ (NEGATIVE) 12/09/18 11:44 Urine Nitrite Negative (NEGATIVE) 12/09/18 11:44 Urine Bilirubin Negative (NEGATIVE) 12/09/18 11:44 Urine Urobilinogen 1+ (NORMAL) 12/09/18 11:44 Ur Leukocyte Esterase Negative (NEGATIVE) 12/09/18 11:44 Urine RBC 0-2 /HPF (0-3) 12/09/18 11:44 Urine WBC None seen /HPF (0-5) 12/09/18 11:44 Ur Squamous Epith Cells Negative /HPF (NEGATIVE) 12/09/18 11:44 Urine Bacteria Negative /HPF (NEGATIVE) 12/09/18 11:44 Urine Mucus Few /HPF (NEGATIVE) 12/09/18 11:44 Ur Culture Indicated? No/not indicated 12/09/18 11:44 Reason For Visit: LEFT SIDED ABD TENDERNESS,FEVER,R/O ACUTE DIVERTIC Discharge Date Discharge Date: 12/12/18 Discharge Diagnosis All Active Problems (Updated 12/10/18 @ 18:16 by JEN SUMAYA) Abdominal pain, acute, left lower quadrant (Acute) Fever (Acute) Hypertension (Acute) Urinary retention (Acute) Acute diverticulitis (Acute) Plan of Treatment: Continue with present treatment and follow up plan. Pt is to keep follow up appointment as instructed and take medications as ordered. Discharge Medications Discharge Medications: No Known Allergies [NKA] Allergy (Verified 12/09/18 14:20) CONTINUE taking the following medications aspirin [Aspir-81] 81 mg PO DAILY 12/09/18 [History] New Prescriptions ciprofloxacin HCl 500 mg PO BID 7 Days #14 tab 12/12/18 [Rx] metronidazole [Flagyl] 500 mg PO TID 7 Days #21 tab 12/12/18 [Rx] quetiapine 50 mg PO BID@0900,1800 30 Days #60 tab 12/12/18 [Rx] rosuvastatin 10 mg PO DAILY 30 Days #30 tab 12/12/18 [Rx] tamsulosin 0.4 mg PO QPM 30 Days #30 cap 12/12/18 [Rx] Follow up and Referral Follow Up: 1 Week Discharge Disposition Discharge Disposition: Home
[2018-12-12] MEDS: SEROquel TAB 25 mg PO SCH (09:57)
[2018-12-12] MEDS: COZAAR PO SCH ×2 (09:58→10:04)
[2018-12-12] MEDS: PROTONIX INJ 40 MG VIAL IVP SCH (10:00)
[2018-12-12] MEDS: CIPRO IV 400 MG PREMIX* 400 MG/200 ML IV.SOLN. IV SCH (10:00)
[2018-12-12] MEDS: LOVENOX INJ 40 MG SYR SC SCH (10:01)
[2018-12-12] MEDS: CRESTOR TAB 10 MG PO SCH (10:05)
[2018-12-12] MEDS: HYDROCHLOROTHIAZIDE 12.5 MG CAP PO SCH (10:06)
[2018-12-12] MEDS ORDERED: CIPRO TAB 500 MG PO ONE ×3 (11:42→13:59)
[2018-12-12] MEDS ORDERED: FLAGYL TAB 500 MG PO ONE (11:43)
[2018-12-12] MEDS ORDERED: PROTONIX TAB 40 MG PO ONE (11:44)
[2018-12-12 12:59] VITALS: BP 120/65
--- NOTE | 2018-12-14 13:13 | PCM.PROG ---
Progress Note - Progress Note for Day of Date of Exam: 12/11/18 - Subjective Subjective: 63 WM DIRECT ADMIT FROM DR EASLEY OFFICE WITH ACUTE DIVERTICULITIS. PT IS CURRENTLY NPO, ON FLAGYL AND CIPRO IV. PT STATES PAIN IS IMPROVING. PT CONTINUE WITH MILD LLQ TENDERNESS. PT HAS BEEN AFEBRILE. DR MARTINEZ IS CONSULTING, WILL ADVANCE DIET PER SURGEONS RECOMMENDATIONS. REPEAT AM LABS - Past Medical Family Social History Past Med/Fam/Surg Hx: No changes since H&P Allergies: Allergies No Known Allergies [NKA] Allergy (Verified 12/09/18 14:20) - Review of Systems ROS: No change since H&P - Vital Signs and I&O's Vital Signs: Temperature 98.2 F Pulse Rate [Right Radial] 76 Respiratory Rate 20 Blood Pressure [Right Arm] 120/65 Blood Pressure 154/88 O2 Sat by Pulse Oximetry 92 Intake and Output: Intake & Output 12/12/18 12/13/18 12/14/18 12/15/18 11:59 11:59 11:59 11:59 Intake Total 2620 / 2620 Balance 2620 / 2620 - Physical Exam Oriented: Normal Eyes: Normal Ear: Normal Nose: Normal Throat: Normal Respiratory: Diminished Cardiovascular: Normal : Normal Auscultation: Bowel Sounds: Decreased Tenderness: LLQ (obese , soft abdomen with LLQ tenderness with only mild rebound . BS+ but hypoactive ), Suprapubic, Moderate Skin: Decreased [place] Musculoskeletal: Normal Psychiatric: Anxiety Affect: Anxious Speech Pattern: Clear, Appropriate - Laboratory and Diagnostics Result Diagrams: 12/11/18 05:10 12/12/18 04:07 Labs: Laboratory WBC 6.9 X10^3/uL (3.6-10.0) 12/11/18 05:10 RBC 4.60 X10^6/uL (4.7-6.0) L 12/11/18 05:10 Hgb 13.9 g/dL (13.5-18.0) 12/11/18 05:10 Hct 40.5 % (42.0-54.0) L 12/11/18 05:10 MCV 88.1 fL (80.0-100.0) 12/11/18 05:10 MCH 30.3 pg (27.0-34.0) 12/11/18 05:10 MCHC 34.4 g/dL (33.0-35.0) 12/11/18 05:10 RDW 14.5 % (11.6-16.5) 12/11/18 05:10 Plt Count 290 X10^3/uL (150.0-450.0) 12/11/18 05:10 MPV 7.5 fL (7.4-11.0) 12/11/18 05:10 Neut % (Auto) 66.1 % (42.0-75.0) 12/11/18 05:10 Lymph % (Auto) 24.8 % (21.0-51.0) 12/11/18 05:10 [place] % (Auto) 5.7 % (0.0-13.0) 12/11/18 05:10 Eos % (Auto) 3.1 % (0.9-2.9) H 12/11/18 05:10 Baso % (Auto) 0.3 % (0.2-1.0) 12/11/18 05:10 Neut # (Auto) 4.6 x10^3/uL (2.2-4.8) 12/11/18 05:10 Lymph # (Auto) 1.7 X10^3/uL (1.3-2.9) 12/11/18 05:10 [place] # (Auto) 0.4 x10^3/uL (0.3-0.8) 12/11/18 05:10 Eos # (Auto) 0.2 x10^3/uL (0.0-0.2) 12/11/18 05:10 Baso # (Auto) 0.0 X10^3/uL (0.0-0.1) 12/11/18 05:10 Absolute Nucleated RBC 0.1 /100WBC 12/11/18 05:10 Sodium 141 mmol/L (136-145) 12/12/18 04:07 Corrected Sodium TNP 12/12/18 04:07 Potassium 3.8 mmol/L (3.5-5.1) 12/12/18 04:07 Chloride 105 mmol/L (98-107) 12/12/18 04:07 Carbon Dioxide 25.8 mmol/L (21-32) 12/12/18 04:07 BUN 15 mg/dL (7-18) 12/12/18 04:07 Creatinine 1.22 mg/dL (0.70-1.30) 12/12/18 04:07 Est GFR (MDRD) Af Amer > 60 (>60) 12/12/18 04:07 Est GFR (MDRD) Non-Af > 60 (>60) 12/12/18 04:07 Glucose 94 mg/dL (65-99) 12/12/18 04:07 Calcium 8.9 mg/dL (8.5-10.1) 12/12/18 04:07 Corrected Calcium 9.6 mg/dL (8.5-10.1) 12/11/18 05:10 Magnesium 2.1 mg/dL (1.7-2.9) 12/10/18 05:55 Total Bilirubin 0.40 mg/dL (0.2-1.0) 12/11/18 05:10 AST 20 Units/L (15-37) 12/11/18 05:10 ALT 26 Units/L (12-78) 12/11/18 05:10 Alkaline Phosphatase 41 Units/L (46-116) L 12/11/18 05:10 Total Protein 6.5 g/dL (6.4-8.2) 12/11/18 05:10 Albumin 2.9 g/dL (3.4-5.0) L 12/11/18 05:10 Globulin 3.6 g/dL (2.5-4.5) 12/11/18 05:10 Albumin/Globulin Ratio 0.8 Ratio (1.1-2.1) L 12/11/18 05:10 Total PSA 0.47 ng/mL (0.13-4.0) 12/09/18 11:44 Specimen Type Clean catch urine 12/09/18 11:44 Urine Color Yellow (YELLOW) 12/09/18 11:44 Urine Appearance Hazy (CLEAR) 12/09/18 11:44 Urine pH 6.5 (5.0 - 8.0) 12/09/18 11:44 Ur Specific [place] 1.010 (1.000-1.030) 12/09/18 11:44 Urine Protein 2+ (NEGATIVE) 12/09/18 11:44 Urine Glucose (UA) Negative (NEGATIVE) 12/09/18 11:44 Urine Ketones Negative (NEGATIVE) 12/09/18 11:44 Urine Occult Blood 1+ (NEGATIVE) 12/09/18 11:44 Urine Nitrite Negative (NEGATIVE) 12/09/18 11:44 Urine Bilirubin Negative (NEGATIVE) 12/09/18 11:44 Urine Urobilinogen 1+ (NORMAL) 12/09/18 11:44 Ur Leukocyte Esterase Negative (NEGATIVE) 12/09/18 11:44 Urine RBC 0-2 /HPF (0-3) 12/09/18 11:44 Urine WBC None seen /HPF (0-5) 12/09/18 11:44 Ur Squamous Epith Cells Negative /HPF (NEGATIVE) 12/09/18 11:44 Urine Bacteria Negative /HPF (NEGATIVE) 12/09/18 11:44 Urine Mucus Few /HPF (NEGATIVE) 12/09/18 11:44 Ur Culture Indicated? No/not indicated 12/09/18 11:44 - Plan (1) Acute diverticulitis Status: Acute Plan: NPO, DR MARTINEZ CONSULTING. CT ABD/PELVIS OBTAINED ON ADMISSION. IV HYDRATION, PAIN AND NAUSEA CONTROL. PPI, BP CONTROL. ON FLOMAX O.4 Q HS (2) Abdominal pain, acute, left lower quadrant Status: Acute Plan: ADMIT, NPO. CT ABD/PELVIS WITH CONTRAST, R/O DIVERTICULITIS. IV HYD RATION, PAIN AND NAUSEA CONTROL. PPI, BP CONTROL. AM CXR, UA AND PSA, FLOMAX O.4 Q HS (3) Fever Status: Acute (4) Hypertension Status: Acute (5) Urinary retention Status: Acute
== END 2018-12-12 14:20 | disposition home or self-care (01) | DRG 392 ==
LOC: MED/SURG 10:52
PROVIDERS: ADMIT Internal Medicine; ATTEND Internal Medicine
DX: R33.9 Retention of urine, unspecified; R10.32 Left lower quadrant pain; I10 Essential (primary) hypertension; E11.65 Type 2 diabetes mellitus with hyperglycemia; K59.09 Other constipation; K57.20 Diverticulitis of large intestine with perforation and abscess without bleeding
CPT/HCPCS: 36415; 71010; 71045; 74177; 80048; 80053; 81001; 83735; 84153; 85025; A4222; C9113; S0030; J0744; J1650; J2270; J7030